=== PATIENT | female | born 1940 | race Native Hawaiian/Other Pacific Islander ===

== ENCOUNTER 2022-06-08 20:34 | Emergency (ER) | payer OTHER, MEDICARE ==
[~2022-06-08] VITALS: Ht 160 cm; Wt 99.8 kg
[2022-06-08 20:34] VITALS: TEMP 98.8
[2022-06-08 21:05] LABS: PLATELET COUNT 197 K/uL (152-353)
[2022-06-08 21:18] LABS: POTASSIUM 5.1 mmol/L (3.6-5.2)
[2022-06-08 21:30] VITALS: BP 122/57
[2022-06-09] MEDS ORDERED: ACET650S18 RE (08:04)
[2022-06-09] MEDS ORDERED: TYLENOL325 MG PO (08:05)
[2022-06-09] MEDS ORDERED: ALPR0.5T24 PO (08:05)
[2022-06-09] MEDS ORDERED: BISACODYL LAXAT10 MG RE (08:06)
[2022-06-09] MEDS ORDERED: BUPROPION HYDR100 M2 PO (08:06)
[2022-06-09] MEDS ORDERED: GABA100C2 PO (08:07)
[2022-06-09] MEDS ORDERED: HALO2CON2 PO (08:08)
[2022-06-09] MEDS ORDERED: LEVSIN/SL0.125 MG SL (08:10)
[2022-06-09] MEDS ORDERED: LORA0.5T17 PO (08:11)
[2022-06-09] MEDS ORDERED: COZAAR100 MG PO (08:12)
[2022-06-09] MEDS ORDERED: METO50TA63 PO (08:13)
[2022-06-09] MEDS ORDERED: MORPHINE SULFATE PO (08:14)
[2022-06-09] MEDS ORDERED: ONDANSETRON ODT SL (08:15)
[2022-06-09] MEDS ORDERED: PAIN RELIEF EX500 MG PO (08:17)
[2022-06-09] MEDS ORDERED: COLACE 2-IN-1 81 TAB PO (08:17)
[2022-06-09] MEDS ORDERED: TAMS0.4C PO (08:18)
[2022-06-09] MEDS ORDERED: SERT50TA PO (08:18)
== END 2022-06-08 22:30 | disposition other institution (70) ==
LOC: ED 20:34
PROVIDERS: Emergency Medicine
DX: F41.8 Other specified anxiety disorders (principal); F32.89 Other specified depressive episodes; Z02.79 Encounter for issue of other medical certificate
CPT/HCPCS: 36415; 80053; 84484; 85027; 87635; 93005; 99283; U0003